=== PATIENT | female | born 1995 | race Caucasian/White ===

== ENCOUNTER 2018-11-19 08:04 | Emergency (ER) | payer OTHER ==
[~2018-11-19] VITALS: Ht 172.7 cm; Wt 81.7 kg
[2018-11-19] MEDS ORDERED: ADIPEX-P37.5 MG PO (08:21)
[2018-11-19] MEDS ORDERED: VIIBRYD1 EAC1 PO (08:22)
[2018-11-19 08:27] LABS: URINE BILIRUBIN NEGATIVE (Negative); URINE BLOOD TRACE (Negative); URINE CLARITY CLOUDY; URINE COLOR YELLOW; URINE GLUCOSE-RANDOM* NEGATIVE (Negative); URINE KETONES NEGATIVE (Negative); URINE NITRITE-REFLEX NEGATIVE (Negative); URINE PROTEIN (DIPSTICK) NEGATIVE (Negative); URINE UROBILINOGEN 0.2 E.U./dl (0.2-1.0)
[2018-11-19 08:29] LABS: URINE LEUKOCYTES-REFLEX 3+ (Negative)
[2018-11-19 09:00] LABS: AMORPHOUS URATES Few /LPF (None Seen); CASTS None Seen /LPF (None Seen); SQUAMOUS 0-3 Few /LPF (0-3); URINE RBC 3-10 Few /HPF (0-2); URINE WBC-REFLEX >25 Many /HPF (0-5)
[2018-11-19 09:42] VITALS: BP 151/92
== END 2018-11-19 09:43 | disposition home or self-care (01) ==
LOC: ER 08:04
PROVIDERS: Emergency Medicine
DX: N76.0 Acute vaginitis (principal); Z88.2 Allergy status to sulfonamides; Z98.890 Other specified postprocedural states